=== PATIENT | female | born 1970 | race Caucasian/White ===

== ENCOUNTER → 2017-11-03 | Outpatient (CLI) | payer OTHER ==
[2017-11-03 18:18] LABS: THYROID STIMULATING HORMONE 11.9 uIu/ml (0.300-4.500)
[2017-11-05 13:04] LABS: THYROGLOBULIN 0.1 NG/ML (2.8-40.9)
== END | disposition home or self-care (01) ==
LOC: C.LABMFLN 13:05
PROVIDERS: ATTEND Internal Medicine Endocrinology, Diabetes & Metabolism
DX: E89.0 Postprocedural hypothyroidism (principal); C73 Malignant neoplasm of thyroid gland